=== PATIENT | female | born 1975 | race Caucasian/White ===

== ENCOUNTER 2017-11-15 08:51 | Emergency (ER) | payer MEDICARE, OTHER ==
[~2017-11-15] VITALS: Ht 162.6 cm; Wt 100.0 kg
[2017-11-15 08:56] VITALS: BP 187/99; PULSE 130; RESP 18; TEMP 97.9; O2SAT 99
[2017-11-15 09:12] VITALS: BP 181/92; PULSE 108; RESP 19; O2SAT 98
[2017-11-15] MEDS ORDERED: SODIUM CHLOR 0.9% 1000 ML INJ 1,000 ML IV SCH (09:14)
[2017-11-15] MEDS ORDERED: ONDANSETRON HCL 4 MG/2 ML VIAL IVP ONE (09:15)
[2017-11-15] MEDS ORDERED: MORPHINE SULFATE 4 MG/ML INJ IV PUSH ONE (09:15)
[2017-11-15] MEDS ORDERED: SODIUM CHLORIDE 0.9% FLUSH 10 ML FLUSH IV FLUSH PRN (09:15)
[2017-11-15 09:16] VITALS: BP 181/92; PULSE 108; RESP 19; O2SAT 98
--- NOTE | 2017-11-15 09:20 | PD ---
HPI Chief Complaint: Suicide Ideation/Attempt Time Seen by Provider: 09:05 Travel History International Travel<30 days: No Contact w/Intl Traveler<30days: No Traveled to known affect area: No History of Present Illness HPI The patient is a 42-year-old female who presents emergency department with a family member for abdominal pain and suicidal ideation. The patient lives in a senior care, stays with the family on the weekends. The patient was told family members that she had abdominal pain for last several days, generalized, cyst with mild nausea and one episode of diarrhea. The patient does have a history of diverticulitis with previous partial colectomy. The patient also has a history of depression, is having suicidal thoughts or last several days but does not have a suicidal plan. Family brought the patient to the emergency department to be evaluated by psychiatry. They do not have a list of her medications and the patient is unable to tell me what medications she currently takes, including any psychiatric medications. She denies any hallucinations or delusions. She denies alcohol use or drug use. Symptoms are moderate. PFSH Past Medical History Arthritis: No Asthma: No Autoimmune Disease: No Blood Disorders: No Anxiety: No Depression: No Heart Rhythm Problems: No Cancer: No Cardiovascular Problems: No High Cholesterol: No Chemotherapy: No Chest Pain: No Congestive Heart Failure: No COPD: No Cerebrovascular Accident: No Diabetes: Yes Patient Takes Glucophage: Yes Diminished Hearing: No Endocrine: No GERD: No Glaucoma: No Genitourinary: No Headaches: Yes Hepatitis: No Hiatal Hernia: No Hypertension: No Kidney Stones: No Musculoskeletal: No Neurologic: No Psychiatric: No Respiratory: No Myocardial Infarction: No Radiation Therapy: No Renal Failure: No Seizures: No Sickle Cell Disease: No Sleep Apnea: No Thyroid Disease: No Ulcer: No Tetanus Vaccination: Unknown ?: Not Past Surgical History Abdominal Surgery: Yes AICD: No Cardiac Surgery: No Ear Surgery: No Endocrine Surgery: No Eye Surgery: No Genitourinary Surgery: No Gynecologic Surgery: No Oral Surgery: No Pacemaker: No Thoracic Surgery: No Other Surgery: Yes Social History Alcohol Use: No Tobacco Use: No Substance Use: No Allergies-Medications (Allergen,Severity, Reaction): Coded Allergies: No Known Allergies (Verified Allergy, Unknown, 10/11/04) Reported Meds & Prescriptions Reported Meds & Active Scripts Active Reported Chlorthalidone 25 Mg Tab 25 Mg PO DAILY Simvastatin 20 Mg Tab 20 Mg PO HS Desmopressin (Desmopressin Acetate) 0.2 Mg Tab 0.2 Mg PO HS Metformin (Metformin HCl) 1,000 Mg Tab 1,000 Mg PO BIDPC Omeprazole 20 Mg Tab 20 Mg PO DAILY Amlodipine (Amlodipine Besylate) 10 Mg Tab 10 Mg PO DAILY Review of Systems Except as stated in HPI: all other systems reviewed are Neg General / Constitutional: No: Fever Cardiovascular: No: Chest Pain or Discomfort Respiratory: No: Shortness of Breath Gastrointestinal: Positive: Nausea, Diarrhea, Abdominal Pain, No: Vomiting Genitourinary: No: Dysuria Neurologic: No: Change in Mentation Psychiatric: Positive: Anxiety, Depression, Suicidal Ideations, No: Substance Abuse Physical Exam Narrative GENERAL: Awake, alert, pleasant 42-year-old female who appears her stated age and is in no acute respiratory distress. SKIN: Focused skin assessment warm/dry. HEAD: Atraumatic. Normocephalic. EYES: No injection or drainage. ENT: No nasal bleeding or discharge. Dry mucous membranes. NECK: Trachea midline. No JVD. CARDIOVASCULAR: Regular, tachycardic with a heart rate of 115. RESPIRATORY: No accessory muscle use. Clear to auscultation. Breath sounds equal bilaterally. GASTROINTESTINAL: Abdomen soft, well-healed midline scar. Minimal epigastric tenderness. No guarding or rigidity.. MUSCULOSKELETAL: No obvious deformities. No clubbing. No cyanosis. No edema. NEUROLOGICAL: Awake and alert. No obvious cranial nerve deficits. Motor grossly within normal limits. Normal speech. PSYCHIATRIC: Odd affect. Data Data Last Documented VS Vital Signs Date Time Temp Pulse Resp B/P (MAP) Pulse Ox O2 Delivery O2 Flow Rate FiO2 11/15/17 15:06 91 18 137/75 (95) 96 11/15/17 15:06 Room Air 11/15/17 08:56 97.9 Orders Orders Complete Blood Count With Diff (11/15/17 09:14) Comprehensive Metabolic Panel (11/15/17 09:14) Lipase (11/15/17 09:14) Lactic Acid (11/15/17 09:14) Urinalysis - C+S If Indicated (11/15/17 09:14) Ct Abd/Pel W/O Iv Contrast (11/15/17 09:14) Iv Access Insert/Monitor (11/15/17 09:14) Ecg Monitoring (11/15/17 09:14) Oximetry (11/15/17 09:14) Morphine Inj (Morphine Inj) (11/15/17 09:15) Ondansetron Inj (Zofran Inj) (11/15/17 09:15) Sodium Chlor 0.9% 1000 Ml Inj (Ns 1000 M (11/15/17 09:14) Sodium Chloride 0.9% Flush (Ns Flush) (11/15/17 09:15) Psych Screen (11/15/17 09:14) Potassium Chloride (Kcl) (11/15/17 10:30) Potassium Chlor 20 Meq Premix (Kcl 20 Me (11/15/17 10:30) Sodium Chlor 0.9% 1000 Ml Inj (Ns 1000 M (11/15/17 10:30) Ketorolac Inj (Toradol Inj) (11/15/17 13:45) Ed Discharge Order (11/15/17 14:51) Labs Laboratory Tests Test 11/15/17 09:35 11/15/17 10:58 White Blood Count 10.5 TH/MM3 Red Blood Count 5.85 MIL/MM3 Hemoglobin 16.6 GM/DL Hematocrit 48.2 % Mean Corpuscular Volume 82.4 FL Mean Corpuscular Hemoglobin 28.3 PG Mean Corpuscular Hemoglobin Concent 34.3 % Red Cell Distribution Width 12.3 % Platelet Count 337 TH/MM3 Mean Platelet Volume 8.9 FL Neutrophils (%) (Auto) 69.7 % Lymphocytes (%) (Auto) 21.0 % Monocytes (%) (Auto) 8.4 % Eosinophils (%) (Auto) 0.2 % Basophils (%) (Auto) 0.7 % Neutrophils # (Auto) 7.3 TH/MM3 Lymphocytes # (Auto) 2.2 TH/MM3 Monocytes # (Auto) 0.9 TH/MM3 Eosinophils # (Auto) 0.0 TH/MM3 Basophils # (Auto) 0.1 TH/MM3 CBC Comment DIFF FINAL Differential Comment Blood Urea Nitrogen 15 MG/DL Creatinine 0.99 MG/DL Random Glucose 133 MG/DL Total Protein 9.2 GM/DL Albumin 4.6 GM/DL Calcium Level 10.1 MG/DL Alkaline Phosphatase 66 U/L Aspartate Amino Transf (AST/SGOT) 18 U/L Alanine Aminotransferase (ALT/SGPT) 29 U/L Total Bilirubin 0.7 MG/DL Sodium Level 134 MEQ/L Potassium Level 2.5 MEQ/L Chloride Level 94 MEQ/L Carbon Dioxide Level 28.5 MEQ/L Anion Gap 12 MEQ/L Estimat Glomerular Filtration Rate 62 ML/MIN Lactic Acid Level 3.1 mmol/L Lipase 95 U/L Urine Color LIGHT-YELLOW Urine Turbidity CLEAR Urine pH 7.5 Urine Specific [place] 1.003 Urine Protein NEG mg/dL Urine Glucose (UA) NEG mg/dL Urine Ketones NEG mg/dL Urine Occult Blood NEG Urine Nitrite NEG Urine Bilirubin NEG Urine Urobilinogen LESS THAN 2.0 MG/DL Urine Leukocyte Esterase NEG Urine WBC LESS THAN 1 /hpf Microscopic Urinalysis Comment CULT NOT INDICATED MDM Medical Decision Making Medical Screen Exam Complete: Yes Emergency Medical Condition: Yes Medical Record Reviewed: Yes Interpretation(s) Laboratory Tests Test 11/15/17 09:35 11/15/17 10:58 White Blood Count 10.5 TH/MM3 Red Blood Count 5.85 MIL/MM3 Hemoglobin 16.6 GM/DL Hematocrit 48.2 % Mean Corpuscular Volume 82.4 FL Mean Corpuscular Hemoglobin 28.3 PG Mean Corpuscular Hemoglobin Concent 34.3 % Red Cell Distribution Width 12.3 % Platelet Count 337 TH/MM3 Mean Platelet Volume 8.9 FL Neutrophils (%) (Auto) 69.7 % Lymphocytes (%) (Auto) 21.0 % Monocytes (%) (Auto) 8.4 % Eosinophils (%) (Auto) 0.2 % Basophils (%) (Auto) 0.7 % Neutrophils # (Auto) 7.3 TH/MM3 Lymphocytes # (Auto) 2.2 TH/MM3 Monocytes # (Auto) 0.9 TH/MM3 Eosinophils # (Auto) 0.0 TH/MM3 Basophils # (Auto) 0.1 TH/MM3 CBC Comment DIFF FINAL Differential Comment Blood Urea Nitrogen 15 MG/DL Creatinine 0.99 MG/DL Random Glucose 133 MG/DL Total Protein 9.2 GM/DL Albumin 4.6 GM/DL Calcium Level 10.1 MG/DL Alkaline Phosphatase 66 U/L Aspartate Amino Transf (AST/SGOT) 18 U/L Alanine Aminotransferase (ALT/SGPT) 29 U/L Total Bilirubin 0.7 MG/DL Sodium Level 134 MEQ/L Potassium Level 2.5 MEQ/L Chloride Level 94 MEQ/L Carbon Dioxide Level 28.5 MEQ/L Anion Gap 12 MEQ/L Estimat Glomerular Filtration Rate 62 ML/MIN Lactic Acid Level 3.1 mmol/L Lipase 95 U/L Urine Color LIGHT-YELLOW Urine Turbidity CLEAR Urine pH 7.5 Urine Specific [place] 1.003 Urine Protein NEG mg/dL Urine Glucose (UA) NEG mg/dL Urine Ketones NEG mg/dL Urine Occult Blood NEG Urine Nitrite NEG Urine Bilirubin NEG Urine Urobilinogen LESS THAN 2.0 MG/DL Urine Leukocyte Esterase NEG Urine WBC LESS THAN 1 /hpf Microscopic Urinalysis Comment CULT NOT INDICATED CT abdomen and pelvis reveals no definite findings to explain patient's abdominal pain. Appendix is not directly visualized. However, no significant inflammatory change in the right lower quadrant. Mild diverticulosis without diverticulitis. 2.7 cm left fat-containing spigelian hernia. Very subtle fat- containing. Umbilical anterior abdominal wall hernia. 3.3 cm hypodense lesion abutting the posterior uterus which is difficult to localize. Differential considerations include uterine leiomyoma versus adnexal cyst. Ultrasound may be performed for further evaluation of clinically necessary. Differential Diagnosis Differential diagnosis includes pancreatitis, gastritis, porphyria, diverticulitis, adjustment reaction, stress reaction, bipolar affective disorder , depressive disorder NOS. Narrative Course IV was established, labs are drawn and sent, and the patient was placed on cardiac telemetry monitoring and continuous pulse oximetry monitoring. 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 CT of the abdomen and pelvis was performed. CT the abdomen and pelvis reveals chronic changes, no acute inflammatory changes noted. Lactic acid is mildly elevated at 3.1, hemoglobin was elevated at 16.5, likely secondary to dehydration. The patient was administered a second liter of IV fluids. White count is normal. Potassium is low, this was replaced orally and intravenously. The patient is medically clear to be evaluated by psychiatry. The patient was evaluated by psychiatry, now states she no longer has suicidal ideation, definitely has no plan. She has contracted for safety. The daughter is comfortable taking the patient home. The patient wants to return home. 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 Patient is stable for discharge. Diagnosis Primary Impression: Abdominal pain Qualified Codes: R10.84 - Generalized abdominal pain Additional Impressions: Mood disorder Hypokalemia Patient Instructions: General Instructions Additional Instructions: Please provide the patient a copy of her CT results and lab results at discharge. Follow-up with her primary physician. Return if symptoms worsen or progress. Discharge patient home with family. Potassium as directed. Repeat potassium level in one week. Med/Other Pt SpecificInfo: Prescription(s) given Scripts Potassium Chloride ER (Potassium Chloride ER) 10 Meq Tab 10 MEQ PO DAILY for Electrolyte Replacement for 7 Days, #7 TAB 0 Refills Prov: Juan Lopez MD 11/15/17 Disposition: DISCHARGE HOME Condition: Stable Juan Lopez MD Nov 15, 2017 09:20
[2017-11-15 09:52] LABS: AUTOMATED NEUTROPHIL # 7.3 TH/MM3 (1.8-7.7); BASOPHIL # 0.1 TH/MM3 (0-0.2); BASOPHIL % 0.7 % (0.0-2.0); EOSINOPHIL % 0.2 % (0.0-4.0); HEMATOCRIT 48.2 % (35.0-46.0); HEMOGLOBIN 16.6 GM/DL (11.6-15.3); LYMPHOCYTE # 2.2 TH/MM3 (1.0-4.8); MEAN CELL VOLUME 82.4 FL (80.0-100.0); MEAN CORPUSCULAR HEMOGLOBIN 28.3 PG (27.0-34.0); MEAN CORPUSCULAR HGB CONC 34.3 % (32.0-36.0); MEAN PLATELET VOLUME 8.9 FL (7.0-11.0); MONO % 8.4 % (0.0-8.0); MONOCYTE # 0.9 TH/MM3 (0-0.9); NEUT % 69.7 % (16.0-70.0); PLATELET COUNT 337 TH/MM3 (150-450); RED BLOOD COUNT 5.85 MIL/MM3 (4.00-5.30); RED CELL DISTRIBUTION WIDTH 12.3 % (11.6-17.2); WHITE BLOOD COUNT 10.5 TH/MM3 (4.0-11.0)
[2017-11-15 10:13] LABS: ALBUMIN 4.6 GM/DL (3.4-5.0); ALKALINE PHOSPHATASE 66 U/L (45-117); ALT (GPT) 29 U/L (10-53); AST (GOT) 18 U/L (15-37); BICARBONATE 28.5 MEQ/L (21.0-32.0); BLOOD UREA NITROGEN 15 MG/DL (7-18); CALCIUM 10.1 MG/DL (8.5-10.1); CHLORIDE 94 MEQ/L (98-107); CREATININE 0.99 MG/DL (0.50-1.00); GLOMERULAR FILTRATION RATE 62 ML/MIN (>89); GLUCOSE,RANDOM 133 MG/DL (74-106); SODIUM (NA) 134 MEQ/L (136-145); TOTAL BILIRUBIN ADULT 0.7 MG/DL (0.2-1.0); TOTAL PROTEIN 9.2 GM/DL (6.4-8.2)
[2017-11-15] MEDS ORDERED: POTASSIUM CHLORIDE 20 MEQ CONTROLLED RELEASE TAB PO ONE (10:30)
[2017-11-15] MEDS ORDERED: POTASSIUM CHLOR 20 MEQ PREMIX 100 ML IV ONE (10:30)
[2017-11-15] MEDS ORDERED: SODIUM CHLOR 0.9% 1000 ML INJ 1,000 ML IV ONE (10:30)
[2017-11-15 11:16] LABS: BILIRUBIN, URINE NEG (NEG); BLOOD, URINE NEG (NEG); GLUCOSE,URINE NEG (NEG); KETONE, URINE NEG (NEG); NITRITE,URINE NEG (NEG); PH, URINE 7.5 (5.0-8.5); URINE COLOR LIGHT-YELLOW (YELLW/STRAW); URINE LEUKOCYTE ESTERASE NEG (NEG)
[2017-11-15] MEDS ORDERED: OMEP20TA93 PO (11:18)
[2017-11-15] MEDS ORDERED: METF1000 PO (11:18)
[2017-11-15] MEDS ORDERED: AMLO10TA2 PO (11:18)
[2017-11-15] MEDS ORDERED: SIMV20TA PO (11:18)
[2017-11-15] MEDS ORDERED: CHLO25TA2 PO (11:18)
[2017-11-15] MEDS ORDERED: DESM1TAB16 PO (11:18)
--- NOTE | 2017-11-15 11:21 | RADRPT ---
EXAM DATE/TIME: 11/15/2017 10:27 [facility] COMPARISON: No previous studies available for comparison. INDICATIONS : Abdominal pain, nausea, diarrhea. ORAL CONTRAST: No oral contrast ingested. RADIATION DOSE: 15.09 CTDIvol (mGy) MEDICAL HISTORY : Diverticulitis. SURGICAL HISTORY : Partial colectomy ENCOUNTER: Initial ACUITY: 1 day PAIN SCALE: 5/10 LOCATION: Bilateral Abdomen TECHNIQUE: Volumetric scanning of the abdomen and pelvis was performed. Using automated exposure control and ad justment of the mA and/or kV according to patient size, radiation dose was kept as low as reasonably achievable to obtain optimal diagnostic quality images. DICOM format image data is available electro nically for review and comparison. FINDINGS: LOWER LUNGS: The visualized lower lungs are clear. LIVER: Homogeneous density without lesion. There is no dilation of the biliary tree. No calcified gallston es. SPLEEN: Normal size without lesion. PANCREAS: Within normal limits. KIDNEYS: Normal in size and shape. There is no mass, stone, or hydronephrosis. ADRENAL GLANDS: Within normal limits. VASCULAR: There is no aortic aneurysm. BOWEL/MESENTERY: The stomach, small bowel, and colon demonstrate no acute abnormality. Mild sigmoid and scattered dist al colonic diverticula without significant inflammatory change. The appendix is not directly visualiz ed. There is no free intraperitoneal air or fluid. ABDOMINAL WALL: 2.7 cm left fat-containing spigelian hernia. Very subtle fat-containing periumbilical anterior abdomi nal wall hernia. RETROPERITONEUM: There is no lymphadenopathy. BLADDER: No wall thickening or mass. REPRODUCTIVE: 3.3 cm hypodense lesion which appears to abut the posterior uterus and difficult to localize. INGUINAL: There is no lymphadenopathy or hernia. MUSCULOSKELETAL: Within normal limits for patient age. CONCLUSION: 1. No definite findings to explain patient's abdominal pain. 2. Appendix is not directly visualized. However, no significant inflammatory change in the right lowe r quadrant. 3. Mild diverticulosis without diverticulitis. 4. 2.7 cm left fat-containing spigelian hernia. Very subtle fat-containing periumbilical anterior abd ominal wall hernia. 5. 3.3 cm hypodense lesion abutting the posterior uterus which is difficult to localize. Differential considerations include uterine leiomyoma versus adnexal cyst. Ultrasound examination may be performe d for further evaluation if clinically necessary. Jori Angel MD on November 15, 2017 at 11:08 Board Certified Radiologist. This report was verified electronically.
[2017-11-15 11:41] VITALS: BP 157/76; PULSE 104; RESP 16; O2SAT 96
[2017-11-15] MEDS ORDERED: KETOROLAC TROMETHAMINE 30 MG/ML (IVP) VIAL IV PUSH ONE (13:45)
[2017-11-15 15:06] VITALS: BP 137/75; PULSE 91; RESP 18; O2SAT 96
[2017-11-15] MEDS ORDERED: POTA10TA2 PO (15:08)
--- NOTE | 2017-11-15 16:22 | PD ---
History of Present Illness Chief Complaint: Suicide Ideation/Attempt Time Seen by Provider: 14:30 Travel History International Travel<30 Days: No Contact w/Intl Traveler<30days: No Known affected area: No Legal Status Legal Status: Voluntary History of Present Illness: Patient is a 42-year-old single female who presents voluntarily for depression 1 day, she has no previous mental health history. Reviewed EMR, labs, and radiology report. Spoke with PHOENIX Arguello regarding patient, she has no concerns at this time. Patient's sister present at bedside, spoke briefly with her before entering room , she identifies herself as one of the patient's guardians. 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 Sister advises patient is generally very happy there. Initially, patient presents with a sad demeanor. She is neatly groomed, maintains eye contact, and answers questions appropriately. Patient states "I do not want to go back to the senior living. I don't know if I should live anymore." When asked if anything has been bothering her recently, she reports that her roommate "talks all the time". When asked how she has been sleeping of late she states, "not good". She admits that roommates talking has been keeping her awake at night. Also noted on patient's MAR from the senior living that she recently took a round of doxycycline. Patient admits that she has not been feeling well of late and that that could be making her more "cranky". Patient denies having a concrete plan or intention of harming self. Patient's appetite has been normal and she reports enjoying her normal daily activities. Towards the end of the interview, patient remembered that there is a dance being hosted at the senior living [place]. She then became anxious to leave advising her sister that she needed to "get back to the home to get ready for the dance". Patient denies having a plan for harming herself and denies suicidal ideation. There is no history of substance use or self-harm. While discussing her job and activities she participates in at the senior living, patient became more animated and smiled several times. Patient denies suicidal ideation, homicidal ideation, delusions, auditory or visual hallucinations. There are no firearms in either the senior living or her family's home. She contracts for safety. Patient's sister denies having any concerns at this time. She states that although her sister acts out from time to time, she has never had any problems with depression. Sister advises she is comfortable with taking patient to her house or back to the senior living, which ever the patient wishes, and was advised that should the problem continue or worsen to return to the ED with patient. Spoke with Dr. Lopez who is comfortable with this recommendation and will discharge patient to sister. [facility] Past Medical History Arthritis: No Asthma: No Autoimmune Disease: No Blood Disorders: No Anxiety: No Depression: No Heart Rhythm Problems: No Cancer: No Cardiovascular Problems: No High Cholesterol: No Chemotherapy: No Chest Pain: No Congestive Heart Failure: No COPD: No Cerebrovascular Accident: No Diabetes: Yes Patient Takes Glucophage: Yes Diminished Hearing: No Endocrine: No GERD: No Glaucoma: No Genitourinary: No Headaches: Yes Hepatitis: No Hiatal Hernia: No Hypertension: No Kidney Stones: No Musculoskeletal: No Neurologic: No Psychiatric: No Respiratory: No Myocardial Infarction: No Radiation Therapy: No Renal Failure: No Seizures: No Sickle Cell Disease: No Sleep Apnea: No Thyroid Disease: No Ulcer: No Tetanus Vaccination: Unknown ?: Not Past Surgical History Abdominal Surgery: Yes AICD: No Cardiac Surgery: No Ear Surgery: No Endocrine Surgery: No Eye Surgery: No Genitourinary Surgery: No Gynecologic Surgery: No Oral Surgery: No Pacemaker: No Thoracic Surgery: No Other Surgery: Yes Psychiatric History Psychiatric History Patient has had no previous psychiatric history. Hx Psychiatric Treatment: NO PREVIOUS PSYCHIATRIC TREATMENT History of Inpatient Treatment: No Guns or firearms in home: No Social History Hx Alcohol Use: No Hx Tobacco Use: No Hx Substance Use: No Hx of Substance Use Treatment: No Family Psychiatric History Patient and sister advise that family is extremely supportive of patient and involved in her life on a daily basis. Allergies-Medications (Allergen,Severity, Reaction): Coded Allergies: No Known Allergies (Verified Allergy, Unknown, 10/11/04) Reported Meds & Prescriptions Reported Meds & Active Scripts Active Potassium Chloride ER (Potassium Chloride) 10 Meq Tab 10 Meq PO DAILY 7 Days Reported Chlorthalidone 25 Mg Tab 25 Mg PO DAILY Simvastatin 20 Mg Tab 20 Mg PO HS Desmopressin (Desmopressin Acetate) 0.2 Mg Tab 0.2 Mg PO HS Metformin (Metformin HCl) 1,000 Mg Tab 1,000 Mg PO BIDPC Omeprazole 20 Mg Tab 20 Mg PO DAILY Amlodipine (Amlodipine Besylate) 10 Mg Tab 10 Mg PO DAILY Mental Status Examination Appearance: Appropriate Consciousness: Alert Orientation: x4 Motor Activity: Other (Patient sitting in bed) Speech: Unremarkable, Slow (Per sister, slow measured speech normal for patient ) Language: Adequate Fund of Knowledge: Adequate Attention and Concentration: Adequate Memory: Unremarkable Mood: Appropriate Affect: Appropriate Thought Process & Associations: Intact Thought Content: Appropriate Hallucination Type: None Delusion Type: None Suicidal Ideation: No Suicidal Plan: No Suicidal Intention: No Homicidal Ideation: No Homicidal Plan: No Homicidal Intention: No Insight: Fair Judgment: Impulsive MDM Medical Decision Making Medical Record Reviewed: Yes Assessment/Plan 42-year-old single female presents with complaints of depression 1 day. Patient has no previous history of mental illnesses. Patient shows no clinical signs at this time of psychosis, depression, denies hallucinations, delusions, suicidal ideation or homicidal ideation. Patient resides in a senior living. She reports generally being very happy there. She is future oriented head looking forward to a dance tonight. Patient is to be discharged to [facility] to take back to the senior living, staff will continue to monitor patient. Sister advised that should patient's condition worsen or not improve to return to ED. Additionally , suggested making an appointment with patient's primary care physician Dr. Jefferson for further workup. Patient is psychiatrically cleared to be discharged from the emergency department. Orders Orders Complete Blood Count With Diff (11/15/17 09:14) Comprehensive Metabolic Panel (11/15/17 09:14) Lipase (11/15/17 09:14) Lactic Acid (11/15/17 09:14) Urinalysis - C+S If Indicated (11/15/17 09:14) Ct Abd/Pel W/O Iv Contrast (11/15/17 09:14) Iv Access Insert/Monitor (11/15/17 09:14) Ecg Monitoring (11/15/17 09:14) Oximetry (11/15/17 09:14) Morphine Inj (Morphine Inj) (11/15/17 09:15) Ondansetron Inj (Zofran Inj) (11/15/17 09:15) Sodium Chlor 0.9% 1000 Ml Inj (Ns 1000 M (11/15/17 09:14) Sodium Chloride 0.9% Flush (Ns Flush) (11/15/17 09:15) Psych Screen (11/15/17 09:14) Potassium Chloride (Kcl) (11/15/17 10:30) Potassium Chlor 20 Meq Premix (Kcl 20 Me (11/15/17 10:30) Sodium Chlor 0.9% 1000 Ml Inj (Ns 1000 M (11/15/17 10:30) Ketorolac Inj (Toradol Inj) (11/15/17 13:45) Ed Discharge Order (11/15/17 14:51) Results Vital Signs Date Time Temp Pulse Resp B/P (MAP) Pulse Ox O2 Delivery O2 Flow Rate FiO2 11/15/17 15:06 91 18 137/75 (95) 96 11/15/17 15:06 91 18 137/75 (95) 96 Room Air 11/15/17 11:41 104 16 157/76 (103) 96 Room Air 11/15/17 09:16 108 19 181/92 (121) 98 Room Air 11/15/17 09:12 108 19 181/92 (121) 98 Room Air 11/15/17 09:11 116 19 99 Room Air 11/15/17 08:56 97.9 130 18 187/99 (128) 99 Room Air Laboratory Tests Test 11/15/17 09:35 11/15/17 10:58 White Blood Count 10.5 Red Blood Count 5.85 Hemoglobin 16.6 Hematocrit 48.2 Mean Corpuscular Volume 82.4 Mean Corpuscular Hemoglobin 28.3 Mean Corpuscular Hemoglobin Concent 34.3 Red Cell Distribution Width 12.3 Platelet Count 337 Mean Platelet Volume 8.9 Neutrophils (%) (Auto) 69.7 Lymphocytes (%) (Auto) 21.0 Monocytes (%) (Auto) 8.4 Eosinophils (%) (Auto) 0.2 Basophils (%) (Auto) 0.7 Neutrophils # (Auto) 7.3 Lymphocytes # (Auto) 2.2 Monocytes # (Auto) 0.9 Eosinophils # (Auto) 0.0 Basophils # (Auto) 0.1 CBC Comment DIFF FINAL Differential Comment Blood Urea Nitrogen 15 Creatinine 0.99 Random Glucose 133 Total Protein 9.2 Albumin 4.6 Calcium Level 10.1 Alkaline Phosphatase 66 Aspartate Amino Transf (AST/SGOT) 18 Alanine Aminotransferase (ALT/SGPT) 29 Total Bilirubin 0.7 Sodium Level 134 Potassium Level 2.5 Chloride Level 94 Carbon Dioxide Level 28.5 Anion Gap 12 Estimat Glomerular Filtration Rate 62 Lactic Acid Level 3.1 Lipase 95 Urine Color LIGHT-YELLOW Urine Turbidity CLEAR Urine pH 7.5 Urine Specific [place] 1.003 Urine Protein NEG Urine Glucose (UA) NEG Urine Ketones NEG Urine Occult Blood NEG Urine Nitrite NEG Urine Bilirubin NEG Urine Urobilinogen LESS THAN 2.0 Urine Leukocyte Esterase NEG Urine WBC LESS THAN 1 Microscopic Urinalysis Comment CULT NOT INDICATED Diagnosis Primary Impression: Abdominal pain Additional Impressions: Hypokalemia Adjustment disorder Ruled Out: Mood disorder Psychiatrically Cleared: Yes Departure Forms: Tests/Procedures Patient Instructions: General Instructions, Abdominal Pain (ED) Additional Instructions: Please provide the patient a copy of her CT results and lab results at discharge. Follow-up with her primary physician. Return if symptoms worsen or progress. Discharge patient home with family. Potassium as directed. Repeat potassium level in one week. Med/ Other Pt Specific Info: No Meds Exist/No RX given Prescriptions Potassium Chloride ER (Potassium Chloride ER) 10 Meq Tab 10 MEQ PO DAILY for Electrolyte Replacement for 7 Days, #7 TAB 0 Refills Prov: Juan Lopez MD 11/15/17 Disposition: 01 DISCHARGE HOME Condition: Stable Problem Qualifiers Additional Impressions: Adjustment disorder Qualified Codes: F43.21 - Adjustment disorder with depressed mood Hue Ferrell Nov 15, 2017 16:22
== END 2017-11-15 15:15 | disposition home or self-care (01) ==
LOC: NEPC 08:51
DX: R10.84 Generalized abdominal pain (principal); E87.6 Hypokalemia; F43.21 Adjustment disorder with depressed mood; R11.0 Nausea; E11.9 Type 2 diabetes mellitus without complications; Z79.84 Long term (current) use of oral hypoglycemic drugs
CPT/HCPCS: 74176; 80053; 81001; 83605; 83690; 85025; 96361; 96365; 96366; 96375; 99284; J1885; J2270; J2405; J3480; J7030